=== PATIENT | female | born 1960 | race Caucasian/White ===

== ENCOUNTER 2018-10-22 18:06 | Emergency (ER) | payer OTHER ==
[~2018-10-22] VITALS: Ht 157.5 cm; Wt 72.6 kg
[2018-10-22 18:17] VITALS: Ht 157.5 cm; Wt 72.6 kg
[2018-10-22 21:50] VITALS: BP 94/63
== END 2018-10-22 21:50 | disposition home or self-care (01) ==
LOC: ED 18:06
DX: S39.012A Strain of muscle, fascia and tendon of lower back, initial encounter (principal); X58.XXXA Exposure to other specified factors, initial encounter; Y93.89 Activity, other specified; Y92.89 Other specified places as the place of occurrence of the external cause; Y99.0 Civilian activity done for income or pay
CPT/HCPCS: J1885

== ENCOUNTER 2019-04-06 17:58 | Emergency (ER) | payer OTHER ==
[~2019-04-06] VITALS: Ht 162.6 cm; Wt 71.7 kg
[2019-04-06 18:06] VITALS: Ht 162.6 cm; Wt 71.7 kg
[2019-04-06 20:36] VITALS: BP 121/71
== END 2019-04-06 20:36 | disposition home or self-care (01) ==
LOC: ED 17:58
DX: S09.93XA Unspecified injury of face, initial encounter (principal); S89.92XA Unspecified injury of left lower leg, initial encounter; S89.91XA Unspecified injury of right lower leg, initial encounter; W01.198A Fall on same level from slipping, tripping and stumbling with subsequent striking against other object, initial encounter; Y93.E5 Activity, floor mopping and cleaning; Y92.89 Other specified places as the place of occurrence of the external cause; Y99.8 Other external cause status